=== PATIENT | female | born 1940 | race Caucasian/White ===

== ENCOUNTER 2019-08-16 20:37 | Emergency (ER) | payer MEDICARE ==
[~2019-08-16] VITALS: Ht 160 cm; Wt 68.2 kg
[~2019-08-16 20:37] MED LIST: ALEN70TA60 PO; LEVO50TA8 PO; METF500T PO; NOR5T PO; SIMV-42 PO
--- NOTE | 2019-08-16 21:15 | NUR ---
PT REJI IS WAITING OUTSIDE IN THE CAR, AVAILABLE BY PHONE [phone]
[2019-08-16 21:28] LABS: BASOPHILS # (AUTO) 0.1 X10'3 (0-0.2); BASOPHILS % (AUTO) 1.1 % (0-1); EOSINOPHILS # (AUTO) 0.1 X10'3 (0-0.9); EOSINOPHILS % (AUTO) 1.7 % (0-6); HEMATOCRIT 36.8 % (35.0-45.0); HEMOGLOBIN 12.4 g/dl (12.0-16.0); LYMPHOCYTES # (AUTO) 2.4 X10'3 (1.1-4.8); LYMPHOCYTES % (AUTO) 31.5 % (21-51); MEAN CORPUSCULAR HEMOGLOBIN 31.3 PG (27.0-31.0); MEAN CORPUSCULAR HGB CONC 33.8 g/dL (33.0-36.5); MEAN CORPUSCULAR VOLUME 92.6 FL (78-98); MEAN PLATELET VOLUME 9.2 FL (7.4-10.4); MONOCYTES # (AUTO) 0.5 X10'3 (0-0.9); MONOCYTES % (AUTO) 6.1 % (2-12); NEUTROPHILS # (AUTO) 4.6 X10'3 (1.8-7.7); NEUTROPHILS % (AUTO) 59.6 % (42-75); PLATELET COUNT 279 X10'3 (140-440); RED BLOOD COUNT 3.97 X10'6 (4.20-5.60); WHITE BLOOD COUNT 7.6 X10'3 (4.5-11.0)
[2019-08-16 21:43] LABS: ALANINE AMINOTRANSFERASE 18 U/L (12-78); ALBUMIN 4.1 G/DL (3.4-5.0); ALBUMIN/GLOBULIN RATIO 1.1 (1.1-1.5); ALKALINE PHOSPHATASE 47 IU/L (46-116); ANION GAP 8 (8-16); ASPARTATE AMINO TRANSFERASE 24 U/L (10-37); BILIRUBIN,TOTAL 0.4 MG/DL (0.1-1.0); BLOOD UREA NITROGEN 20 MG/DL (7-18); BUN/CREATININE RATIO 14.2 (6.6-38.0); CALCIUM 9.6 MG/DL (8.5-10.1); CHLORIDE 105 MMOL/L (99-107); CREATININE 1.41 MG/DL (0.40-0.90); GLUCOSE 194 MG/DL (70-104); POTASSIUM 3.8 MMOL/L (3.5-5.1); SODIUM 141 MMOL/L (135-145); TOTAL CARBON DIOXIDE 27.9 MMOL/L (24-32); TOTAL PROTEIN 7.7 G/DL (6.4-8.2); eGFR 36 ML/MIN
[2019-08-16 22:29] VITALS: BP 160/52
== END 2019-08-16 22:32 | disposition home or self-care (01) ==
LOC: ER 20:37
DX: I49.3 Ventricular premature depolarization (principal); E78.00 Pure hypercholesterolemia, unspecified; I10 Essential (primary) hypertension; E11.9 Type 2 diabetes mellitus without complications; Z79.899 Other long term (current) drug therapy
CPT/HCPCS: 36415; 71045; 80053; 84484; 85025; 93005; 99285

== ENCOUNTER 2022-03-08 23:38 | Emergency (ER) | payer MEDICARE ==
[~2022-03-08] VITALS: Ht 160 cm; Wt 63.6 kg
[2022-03-09] VITALS (7 sets, daily range): BP systolic 123–142; BP diastolic 60–77
[2022-03-09] MEDS ORDERED: nitroGLYCERIN 0.4mg SUBLingual tab SL PRN (01:20)
[2022-03-09] MEDS ORDERED: ondansetron/PF 4mg/2ml inj IV ONE (01:20)
[2022-03-09] MEDS ORDERED: normal saline 1000ml 1,000 ML IV ONE (01:20)
[2022-03-09] MEDS ORDERED: glucagon, human recombinant 1mg kit IV ONE (01:20)
[2022-03-09] MEDS ORDERED: MIDAZolam 1 MG/ML 5ML VIAL ONE (07:00)
[2022-03-09] MEDS ORDERED: FENTANYL CITRATE/PF 50 MCG/1 ML VIAL ONE (07:00)
--- NOTE | 2022-03-09 08:47 | NUR ---
Patient back from GI lab and recovering well. Resting quietly, VSS. PO challenge passed. Will inform MD for D/C.
== END 2022-03-09 09:30 | disposition home or self-care (01) ==
LOC: ER 23:40
DX: T18.128A Food in esophagus causing other injury, initial encounter (principal); I51.9 Heart disease, unspecified; E78.00 Pure hypercholesterolemia, unspecified; E11.9 Type 2 diabetes mellitus without complications; Z79.899 Other long term (current) drug therapy; X58.XXXA Exposure to other specified factors, initial encounter; Y93.89 Activity, other specified; Y92.89 Other specified places as the place of occurrence of the external cause; Y99.8 Other external cause status
CPT/HCPCS: 43247; 96361; 96374; 96375; 99152; 99285; J1610; J2250; J2405; J3010; J7030; Z7512; 99284; A4620; C1889